=== PATIENT | male | born 1960 | race Caucasian/White ===

== ENCOUNTER → 2019-01-02 | Outpatient (CLI) | payer OTHER ==
--- NOTE | 2019-01-02 07:06 | MR ---
EXAMINATION TYPE: MR shoulder RT wo con DATE OF EXAM: 01/02/2019 COMPARISON: NONE HISTORY: Right shoulder pain per order. Pain with lifting arm overhead for 3 months per patient. TECHNIQUE: Multiplanar, multisequence imaging of the right shoulder is performed without contrast. FINDINGS: Rotator Cuff: Infraspinatus tendon shows articular surface tear involving the majority of fibers elizabeth uring approximately 8 mm transversely coronal image 16 and 14 mm AP diameter sagittal image 23. Supra spinatus tendon is intact. Subscapularis tendon is intact with surrounding fluid noted at level of th e anterior glenoid. There is some thickening and increased signal. Rotator cuff muscle bulk is preser sharlene. Acromioclavicular Joint: Moderate to severe narrowing. No significant spurring. Distal acromion morph ology is unremarkable. Glenohumeral Joint: Moderate to large joint effusion with mild spurring and moderate narrowing most p rominent inferiorly where there is osseous changes to the inferior glenoid more prominent anteriorly, suspect geode formation. Labrum: The superior labrum appears grossly intact given limitation of non-arthrogram study. Biceps Tendon: The long head of biceps is in normal location within bicipital groove. Prominent surro unding fluid is noted. Bone marrow signal: No focal abnormal marrow signal is appreciated. Other: Increased fluid signal subdeltoid/subacromial bursa IMPRESSION: 1. Significant fall thickness articular surface tear of the infraspinatus tendon. 2. Moderate to severe inferior glenohumeral joint arthropathy as detailed above. 3. Bicipital tenosynovitis and subdeltoid/subacromial bursitis. 4. Subscapularis tendinopathy.
== END | disposition home or self-care (01) ==
LOC: RADMRIMAIN 06:07
PROVIDERS: ATTEND Orthopaedic Surgery
DX: S46.011A Strain of muscle(s) and tendon(s) of the rotator cuff of right shoulder, initial encounter (principal); M75.21 Bicipital tendinitis, right shoulder; M75.51 Bursitis of right shoulder; M67.813 Other specified disorders of tendon, right shoulder; M19.011 Primary osteoarthritis, right shoulder

== ENCOUNTER 2019-02-07 08:04 | Day surgery (SDC) | payer OTHER ==
[2019-02-05 09:56] VITALS: BMI 23.1
--- NOTE | 2019-02-06 16:58 | HP ---
HISTORY AND PHYSICAL DATE OF SURGERY: 02/07/2019 Bryan Cruz is a 58-year-old patient seen with progressive right shoulder pain. We discussed treatment options with him. He elected to proceed with arthroscopy. Consent was obtained. PAST MEDICAL HISTORY: Depression. PAST SURGICAL HISTORY: Noncontributory. DAILY MEDICATIONS: Bupropion. ALLERGIES: NONE. SOCIAL HISTORY: Denies current tobacco use. PHYSICAL EVALUATION OF RIGHT SHOULDER: Flexion 90 degrees. Abduction is 40 degrees. External rotation is 40 degrees with weakness and pain. Tenderness along the anterolateral acromion and rotator cuff insertion site. Impingement sign is positive at 90 degrees. Drop-arm sign is positive. Distal neurovascular exam is intact. RADIOGRAPHS: Radiographs of the right shoulder revealed a type 2 anterior acromion, evidence for cystic changes of the tuberosity. A right shoulder MRI revealed rotator cuff tendon tear, acromioclavicular and glenohumeral joint osteoarthritis. IMPRESSION: 1. Right shoulder impingement with rotator cuff tear. 2. Right shoulder acromioclavicular joint osteoarthritis. 3. Right shoulder glenohumeral joint osteoarthritis. 4. Gastroesophageal reflux disease. PLAN: Right shoulder arthroscopy, subacromial decompression, probable arthroscopic rotator cuff repair, probable Jennifer procedure and debridement. MMODL / IJN: [id number] /
[~2019-02-07 08:04] MED LIST: HYDROmorphone 0.5 MG/0.5 ML SYRINGE IVP PRN; LACTATED RINGERS 1,000 ML IV SCH
[2019-02-07 08:22] VITALS: RESP 16; TEMP 98.6
[2019-02-07] MEDS ORDERED: LIDOCAINE 1% 20 ML VIAL (10MG/ML) FOR IV START INTRADERMA ONE (08:25)
[2019-02-07] MEDS ORDERED: fentaNYL (PF) 50 MCG/ML 2 ML AMP IV ONE (08:30)
[2019-02-07] MEDS ORDERED: MIDAZOLAM PF (FBP) 2 MG/2 ML VIAL IV ONE (08:30)
[2019-02-07] MEDS ORDERED: LIDOCAINE 1% INJ 10MG/ML (20 ML MDV) ONE (08:56)
[2019-02-07] MEDS ORDERED: KETOROLAC 30 MG/ML 1 ML VIAL ONE (08:56)
[2019-02-07] MEDS ORDERED: PROPOFOL 10 MG/ML 20 ML VIAL IV ONE (08:56)
[2019-02-07] MEDS ORDERED: MIDAZOLAM 2 MG/2 ML VIAL ONE (08:56)
[2019-02-07] MEDS ORDERED: SUCCINYLCHOLINE CHLORIDE 100 MG/5 ML SYR IV ONE (08:56)
[2019-02-07] MEDS ORDERED: ROPIVACAINE 5 MG/ML 30 ML VIAL ONE (08:56)
[2019-02-07] MEDS ORDERED: DEXAMETHASONE SOD PHOSPHATE 4 MG/ML 1 ML VIAL ONE (08:56)
[2019-02-07] MEDS ORDERED: ePHEDrine SULFATE/0.9% NACL/PF 50 MG/5 ML SYRINGE IV ONE (08:56)
[2019-02-07] MEDS ORDERED: fentaNYL (PF) 50 MCG/ML 2 ML AMP ONE (08:56)
[2019-02-07] MEDS ORDERED: DEXAMETHASONE SOD PHOSPHATE 10 MG/ML 1 ML VIAL IV ONE (08:57)
[2019-02-07] MEDS ORDERED: ONDANSETRON 4 MG/2 ML VIAL IVP ONE ×2 (08:57→08:58)
--- NOTE | 2019-02-07 08:57 | P.ANPRN ---
Procedure Note - Anesthesia - Nerve Block Performed Right Interscalene Single Time Out Performed: Yes Date of Procedure: 02/07/19 Procedure Start Time: 08:30 Procedure Stop Time: 08:40 Location of Patient Procedure: PreOp Indication: Acute Post-Operative Pain, Requested by Surgeon (tim) Specifically requested for management of pain by DrClaude: Leon Espinoza Sedation Type: Sedate with meaningful contact maintained Preparation: Sterile Prep Position: Supine Catheter: None Needle Types: Pajunk Needle Gauge: 21 Ultrasound used to visualize needle placement: Yes Ultrasound used to observe medication spread: Yes Injectate: 0.5% Ropivacaine (see comment for volume) (20 cc) Blood Aspirated: No Pain Paresthesia on Injection Noted: No Resistance on Injection: Normal Image Stored and Saved: Yes Events: Uneventful and Well Tolerated
--- NOTE | 2019-02-07 10:32 | P.OP ---
Date of Procedure: 02/07/19 Preoperative Diagnosis: Right shoulder impingement Postoperative Diagnosis: 1. Right shoulder rotator cuff tear 2. Right shoulder impingement 3. Right shoulder acromioclavicular joint osteoarthritis 4. Right shoulder partial long head biceps tendon tear 5. 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 Right shoulder arthroscopic rotator cuff repair 2. Right shoulder arthroscopic subacromial decompression 3. Right shoulder arthroscopic Jennifer procedure 4. Right shoulder arthroscopic biceps tenotomy 5. Right shoulder arthroscopic chondroplasty humeral head Implants: 1Arthrex 4.75 swivel lock anchor Anesthesia: GETA, regional (Interscalene block) Surgeon: Leon Espinoza Manager Physical #1: Saeid Pires Estimated Blood Loss (ml): 8 Pathology: none sent Condition: stable Disposition: PACU Indications for Procedure: 58-year-old patient seen with progressive right shoulder pain. After treatment options were discussed, he elected to proceed with arthroscopy. Operative Findings: see description of procedure Description of Procedure: Patient underwent an interscalene block by department of anesthesia for postoperative pain management. The patient was then taken to the operative suite. The patient underwent a general anesthetic by the department of anesthesia. The patient was placed into a lateral position and secured. There was appropriate padding of the bony prominence. Right shoulder was then prepped and draped in normal sterile orthopedic fashion. We placed the extremity in 10 pounds of longitudinal traction. A posterior incision was now made for a posterior working portal site. The trocar and cannula were inserted into the glenohumeral joint. Arthroscopy was initiated. Spinal needle was now inserted anteriorly, to ascertain the anterior working portal site. An incision was now made in that area, a trocar was inserted followed by a probe. There was hyperemia partial tearing long head biceps tendon. There were couple small loose bodies noted in the glenohumeral joint. I reduced the motorize shaver and debrided those out. The labrum was now probed and found to be stable. I could see a rotator cuff tear from glenohumeral side. There was an area of grade 2/3 chondromalacia of the humeral head with some small osteochondral flap tears. I performed a chondroplasty. The area was probed and found to be stable. Instruments were now removed from glenohumeral joint. Utilizing the posterior working portal site, the trocar and cannula were inserted into the subacromial space. Arthroscopy initiated. I made an incision 2 fingerbreadths lateral to the acromion. I introduced my trocar followed by my ArthroCare ablator. I now began ablating thick subacromial bursal tissue, which exposed the undersurface of the anterior acromion. There was diminished subacromial space. There was a very prominent anterior acromion. A motorized bur was introduced and a subacromial decompression was performed. I also excised some osteophytes off the inferior aspect of the distal clavicle. The AC joint was visualized and noted to be fairly arthritic. The motorized bur was introduced in the anterior portal site and a Jennifer procedure was performed without difficulty, decompressing the AC joint nicely. I turned my attention to the rotator cuff. There was a 11.5 cm rotator cuff tear. I debrided the margins getting down to stable tendon tissue. I introduced my motorized bur and abraded the footprint area, getting some petechial bleeding. I now with the assistance of Logan ROBLES passed 2 everted mattress sutures through good bites of rotator cuff tendon. We partial hole near the footprint for insertion of her anchor. All 4 limbs of suture were passed through the eyelet of a 4.75 Arthrex swivel lock anchor. The eyelet was introduced into the pre-punch hole. I held the eyelet in position while Logan ROBLES tension the sutures and then deployed the anchor with good bite and purchase noted. All residual suture limbs were now clipped. We had good compression of the tendon along the entire footprint. I injected 1 mL Renyte intra-articular. Instruments now removed from the portal sites. All portal sites were approximated with nylon suture. Sterile dressings were applied followed by a shoulder immobilizer. Saeid ROBLES assisted in this complex case. The patient was awakened, transferred to a bed, and taken to recovery in stable condition.
[2019-02-07] MEDS ORDERED: LACTATED RINGERS 1,000 ML IV ONE (10:46)
[2019-02-07 11:46] VITALS: BP 116/88; PULSE 72
== END 2019-02-07 12:07 | disposition home or self-care (01) ==
LOC: OR 08:04
PROVIDERS: ATTEND Orthopaedic Surgery
DX: M75.101 Unspecified rotator cuff tear or rupture of right shoulder, not specified as traumatic (principal); M19.011 Primary osteoarthritis, right shoulder; S46.111A Strain of muscle, fascia and tendon of long head of biceps, right arm, initial encounter; X58.XXXA Exposure to other specified factors, initial encounter; M94.211 Chondromalacia, right shoulder; M25.711 Osteophyte, right shoulder; F32.9 Major depressive disorder, single episode, unspecified; K21.9 Gastro-esophageal reflux disease without esophagitis; Z87.891 Personal history of nicotine dependence; Z85.828 Personal history of other malignant neoplasm of skin; Z79.899 Other long term (current) drug therapy
CPT/HCPCS: 64415; 76942; 29826; 29827; 29824; C1713; Q4212; J2250 ×2; J1100 ×2; J0690; J2405; J2001; J3010; J1885; J2795; J0330; J2704

== ENCOUNTER → 2023-05-02 | Outpatient (CLI) | payer BC ==
--- NOTE | 2023-05-02 08:36 | MR ---
EXAMINATION TYPE: MR brain wo con DATE OF EXAM: 05/02/2023 COMPARISON: None HISTORY: Cognitive function alteration vertigo headaches CONTRAST: Performed utilizing 0 mL intravenous Gadavist gadolinium contrast. TECHNIQUE: Multiplanar, multiecho imaging on a 3.0 Clara magnet is performed through the brain. Stud y is performed within 24 hours of arrival to the hospital. The craniovertebral junction is normal. The pituitary is normal. Diffusion-weighted imaging is performed. No abnormal hyperintensity is present to suggest an acute i ntracranial infarct or acute ischemic change. There are scattered punctate areas of hyperintensity on T2 and Inversion Recovery weighted sequences which are non-specific but can be related to microvascular ischemic changes. Ventricles and sulci are appropriate for the patient age. IMPRESSION: 1. Scattered deep white matter punctate changes present bilaterally are nonspecific. Differential amelia gnosis includes multiple sclerosis, chronic white matter ischemic type changes, Lyme disease, vasculi tis, migraine headaches.
== END | disposition home or self-care (01) ==
LOC: RADMRIMAIN 05:50
PROVIDERS: ATTEND Family Medicine
DX: I67.82 Cerebral ischemia (principal); R90.82 White matter disease, unspecified; A69.20 Lyme disease, unspecified; I77.6 Arteritis, unspecified; R41.89 Other symptoms and signs involving cognitive functions and awareness
CPT/HCPCS: 70551

== ENCOUNTER → 2023-05-02 | Outpatient (CLI) | payer BC ==
--- NOTE | 2023-05-04 13:43 | CTL ---
EXAMINATION TYPE: CT Low Dose Lung DATE OF EXAM: 05/02/2023 6:44 AM CLINICAL INDICATION:Male, 62 years old with history of Z87.891 personal hx tobacco use; smoker , his tory of tobacco use. COMPARISON: None, this is a baseline study TECHNIQUE: CT scan of the chest obtained without contrast from approximately the lung apices through the upper abdomen. Axial, coronal and sagittal reformatted images were obtained. Low dose technique w as utilized for nodule screening purposes. CT DLP: 91.3 mGycm, Automated exposure control for dose reduction was used. CT Contrast: Contrast used: None Oral contrast used: None FINDINGS: Lack of intravenous contrast and low dose technique limits the evaluation of the vascular and soft ti ssue structures. LUNGS: No evidence of pulmonary fibrosis. There are scattered small hazy groundglass opacities bilate rally mostly in the upper lobes without airspace consolidation, effusion, or pneumothorax. There are mild bilateral upper lobe emphysematous changes. Nodules: RUL: None RML: None RLL: None MELISA: None LLL: None AIRWAY: Central airways are patent. LOWER NECK: No significant findings. HEART AND VASCULATURE: Heart size upper normal.. Mild/moderate coronary artery calcifications. Mild/ moderate calcifications of the aorta. Mild ectasia of the ascending aorta, 3.7 cm. Descending aorta is 2.7 cm. The pulmonary trunk is normal in size at around 2.5 cm. MEDIASTINUM: No gross evidence of adenopathy. SOFT TISSUES/LYMPH NODES: Unremarkable soft tissues. No axillary adenopathy. UPPER ABDOMEN: Mild bilateral perinephric stranding. MUSCULOSKELETAL: Mild to moderate disc degeneration changes are present throughout the thoracolumbar spine. No acute findings. IMPRESSION: 1. No clinically significant pulmonary nodules. 2. Mild pulmonary emphysematous changes. 3. Scattered small hazy groundglass opacities bilaterally, could be related to respiratory bronchioli tis versus other infectious/inflammatory small airways process. CT LUNG RAD AND CT CHEST RECOMMENDATION: Lung-Rad 1 Negative: Continue annual screening with LDCT in 12 months. C Modifier (Personal history of lung cancer?): No. S Modifier (Other clinically significant or potentially significant findings?): No. Other significant or potentially significant abnormalities: Recommend smoking cessation (if current smoker), or continuation of smoking cessation (if prior smoke r). Annual screening for lung cancer with low-dose computed tomography is recommended in adults ages 55 to 77 years who have a 30 pack-year smoking history and currently smoke or have quit within the pa st 15 years. Screening should be discontinued once a person has not smoked for 15 years or develops a health problem that substantially limits life expectancy or the ability or willingness to have curat arnold lung surgery. Lung rads 2021 [email or web address]
== END | disposition home or self-care (01) ==
LOC: RADCTMAIN 05:55
PROVIDERS: ATTEND Family Medicine
DX: Z12.2 Encounter for screening for malignant neoplasm of respiratory organs (principal); J43.9 Emphysema, unspecified; R91.8 Other nonspecific abnormal finding of lung field; F17.210 Nicotine dependence, cigarettes, uncomplicated
CPT/HCPCS: 71271

== ENCOUNTER → 2024-02-28 | Outpatient (CLI) | payer BC ==
--- NOTE | 2024-02-28 10:04 | CT ---
EXAMINATION TYPE: CT abdomen pelvis wo con DATE OF EXAM: 02/28/2024 9:24 AM COMPARISON: None CLINICAL INDICATION: Male, 63 years old with history of R63.4 R61 R63.0 J43.9; ABNORMAL WEIGHT LOSS TECHNIQUE: Axial CT abdomen pelvis wo con;Sagittal and coronal reformats were created on a separate workstation. Contrast used: mL of , (none if empty) Oral contrast used: with Oral Contrast (none if empty) CT DLP: 575 mGycm, Automated exposure control for dose reduction was used. FINDINGS: LOWER CHEST: Unremarkable ABDOMEN LIVER: Unremarkable GALLBLADDER AND BILE DUCTS: Unremarkable. PANCREAS: Unremarkable. SPLEEN: Unremarkable. ADRENAL GLANDS: Unremarkable. KIDNEYS AND URETERS: No evidence of hydronephrosis or renal calculus. The ureters are unremarkable. PELVIS BLADDER: No evidence for wall thickening or mass given limitations of exam. REPRODUCTIVE: Prostate is enlarged in size measuring 5.3 cm in transverse dimension. ABDOMEN & PELVIS STOMACH AND BOWEL: No evidence of bowel obstruction. PERITONEUM/RETROPERITONEUM: No evidence of pneumoperitoneum or free fluid. VASCULATURE: No evidence of aortic aneurysm. MUSCULOSKELETAL: No acute osseous abnormalities, degeneration changes worse at L5-S1 with moderate to severe degeneration. LYMPH NODES: No gross evidence for lymphadenopathy. SOFT TISSUE/ABDOMINAL WALL: Unremarkable IMPRESSION: No evidence for lymphadenopathy or mass. [facility], , 02/28/2024 10:02 AM
== END | disposition home or self-care (01) ==
LOC: RADCTMAIN 07:21
PROVIDERS: ATTEND Family Medicine
CPT/HCPCS: 74176

== ENCOUNTER → 2024-03-15 | Outpatient (CLI) | payer BC ==
--- NOTE | 2024-03-17 20:07 | CT ---
EXAMINATION TYPE: CT chest wo con DATE OF EXAM: 03/15/2024 8:45 AM COMPARISON: None. CLINICAL INDICATION: Male, 63 years old with history of J43.9 EMPHYSEMA, UNSPECIFIED, BEGINNING STAGE S OF EMPHYSEMA, TECHNIQUE: Axial images were obtained at 5 mm thick sections. Reconstructed images are reviewed on [employer] computer in the coronal plane. Contrast used: mL of , (none if empty) Oral contrast used: (none if empty) CT DLP: 206.1 mGycm, Automated exposure control for dose reduction was used. FINDINGS: Portion of the thyroid visualized is normal. No suspicious lung nodules or focal infiltrates are present. There is some emphysematous change prese nt. No enlarged mediastinal or hilar adenopathy is evident. The ascending aorta diameter at the level o f the main pulmonary artery is 3.9 cm. The main pulmonary artery diameter at the bifurcation is 2.2 cm. Mild coronary artery calcification is present Limited CT sections are obtained through the upper abdomen. Abdomen is essentially unremarkable. IMPRESSION: 1. No Acute pulmonary process. Some mild emphysematous change may be present. [facility], , 03/17/2024 8:05 PM
== END | disposition home or self-care (01) ==
LOC: RADCTMAIN 07:58
PROVIDERS: ATTEND Family Medicine
DX: J43.9 Emphysema, unspecified (principal)
CPT/HCPCS: 71250